=== PATIENT | male | born 1995 | race Caucasian/White ===

== ENCOUNTER 2017-03-15 18:29 | Emergency (ER) | payer OTHER ==
[~2017-03-15] VITALS: Ht 180.3 cm; Wt 108.4 kg
[2017-03-16 01:07] VITALS: BP 149/100
== END 2017-03-16 01:00 | disposition left against medical advice (07) ==
LOC: ED 18:29
DX: Z53.21 Procedure and treatment not carried out due to patient leaving prior to being seen by health care provider (principal)

== ENCOUNTER 2017-10-15 11:38 | Emergency (ER) | payer OTHER ==
[~2017-10-15] VITALS: Ht 180.3 cm; Wt 124.7 kg
[2017-10-15 12:24] LABS: BASOPHIL % 0.3 % (0-2); PLATELET COUNT 240 x10^3mcL (130-400); RED CELL DISTRIBUTION WIDTH 13.9 % (11.5-14.5)
[2017-10-15 12:29] LABS: CALCIUM 8.8 mg/dL (8.5-10.1); CARBON DIOXIDE 25.8 mmol/L (21-32); CHLORIDE SERUM 107 mmol/L (98-107); GFR1 > 60 mL/min; GLUCOSE SERUM 102 mg/dL (74-106); POTASSIUM SERUM 3.8 mmol/L (3.5-5.1); SODIUM SERUM 142 mmol/L (136-145)
[2017-10-15 12:36] LABS: ALBUMIN 4.1 g/dL (3.4-5.0); ALKALINE PHOSPHATASE 102 U/L (46-116); ALT/SGPT 111 U/L (16-63); AST/SGOT 45 U/L (15-37); BILIRUBIN TOTAL 0.4 mg/dL (0.20-1.00); TOTAL PROTEIN, SERUM 7.7 g/dL (6.4-8.2)
[2017-10-15 14:07] LABS: AMPHETAMINE QUAL UR NONE DETECTED (NEG <=1000)
[2017-10-15 17:24] VITALS: BP 135/64
== END 2017-10-15 17:40 | disposition home or self-care (01) ==
LOC: ED 11:38
PROVIDERS: Emergency Medicine
DX: T43.591A Poisoning by other antipsychotics and neuroleptics, accidental (unintentional), initial encounter (principal); Y92.89 Other specified places as the place of occurrence of the external cause; F20.9 Schizophrenia, unspecified
CPT/HCPCS: G0480; J7030

== ENCOUNTER 2018-06-09 21:45 | Emergency (ER) | payer OTHER ==
[~2018-06-09] VITALS: Ht 175.3 cm; Wt 118.4 kg
[2018-06-09 21:54] VITALS: Ht 175.3 cm; Wt 118.4 kg
[2018-06-10 00:18] VITALS: BP 137/84
== END 2018-06-10 00:18 | disposition home or self-care (01) ==
LOC: ED 21:45
DX: H60.91 Unspecified otitis externa, right ear (principal)
CPT/HCPCS: J2001

== ENCOUNTER 2018-08-02 11:37 | Emergency (ER) | payer OTHER ==
[~2018-08-02] VITALS: Ht 177.8 cm; Wt 117.9 kg
[2018-08-02 11:55] VITALS: BP 157/113
== END 2018-08-02 14:24 | disposition home or self-care (01) ==
LOC: ED 11:37
DX: S00.83XA Contusion of other part of head, initial encounter (principal); M26.69 Other specified disorders of temporomandibular joint; W21.05XA Struck by basketball, initial encounter; Y93.67 Activity, basketball; Y92.310 Basketball court as the place of occurrence of the external cause; Y99.8 Other external cause status
CPT/HCPCS: J1885